=== PATIENT | male | born 1965 | race Caucasian/White ===

== ENCOUNTER → 2016-11-07 | Outpatient (CLI) | payer OTHER ==
--- NOTE | 2016-11-07 16:15 | RADIOLOGY REPORT PS360 ---
HIP LT 2-3V W/PELVIS IF PERFOR HISTORY: LEFT HIP PAIN ORDERING PHYSICIAN: Gertrude Lorenzana MD PATIENT AGE: 50 years COMPARISON: None FINDINGS: There are mild osteoarthritic changes of the left hip with slight decrease in the joint space medially and mild osteophyte formation along its aspect of the acetabulum. An AP view of the pelvis also shows mild osteoarthritic change of the right hip. Subcortical cystic changes noted in the right acetabular roof laterally. No acute fracture or dislocation. No lytic or blastic change IMPRESSION: Mild osteoarthritis of the hips
== END ==
LOC: RAD 15:46
DX: M25.552 Pain in left hip (principal)